=== PATIENT | male | born 1990 | race Caucasian/White ===

== ENCOUNTER 2021-12-07 15:25 | Emergency (ER) | payer BC, SELFPAY ==
[2021-12-07] VITALS (23 sets, daily range): BP systolic 100–153; BP diastolic 48–103; PULSE 65–123; RESP 13–37; TEMP 36–36.8; O2SAT 93–98
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
[2021-12-07] MEDS: Ibuprofen 600 MG TAB PO (18:14)
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
[2021-12-07] MEDS: fentaNYL 100 MCG/2 ML VIAL IVP (19:05)
--- NOTE | 2021-12-07 19:53 | DI.VRAD_ITS ---
PROCEDURE INFORMATION: Exam: XR Left Shoulder Exam date and time: 12/07/2021 7:14 PM Age: 31 years old Clinical indication: Other: Post reduction TECHNIQUE: Imaging protocol: XR Left shoulder. Views: 2 or more views. COMPARISON: CR XR SHOULDER LT COMPLETE 2+V 12/07/2021 4:59 PM FINDINGS: Bones/joints: Previous shoulder dislocation has been reduced. Alignment anatomic. Soft tissues: Normal. IMPRESSION: Previous shoulder dislocation has been reduced. Alignment anatomic. Dictated and Authenticated by: Kenneth Domingo MD. Ordering:VIJAY Sargent MD
[2021-12-07] MEDS: Acetaminophen 500 MG TAB 1000 MG PO (20:42)
[2021-12-07] MEDS: Normal Saline 1,000 ML 1000 ML IV (20:43)
[2021-12-07] MEDS: Ibuprofen 800 MG TAB PO (21:22)
== END 2021-12-07 21:37 | disposition home or self-care (01) ==
PROVIDERS: Emergency Provider Physician Assistant
DX: S43.085A Other dislocation of left shoulder joint, initial encounter (principal); M25.552 Pain in left hip; S30.810A Abrasion of lower back and pelvis, initial encounter; R55 Syncope and collapse; V86.52XA Driver of snowmobile injured in nontraffic accident, initial encounter
CPT/HCPCS: 23650; 96360; 99285; 72110; 73030; 73502; 99284; J3010